=== PATIENT | male | born 1970 | race African-American/Black ===

== ENCOUNTER 2018-07-11 06:51 | Emergency (ER) | payer MEDICAID ==
--- NOTE | 2018-07-11 07:17 | EDM.PDOC ---
ED HPI GENERAL MEDICAL PROBLEM - General Chief Complaint: General Stated Complaint: HEMORRHOIDS Time Seen by Provider: 07/11/18 07:10 Source of Information: Reports: Patient History Limitations: Reports: No Limitations - History of Present Illness INITIAL COMMENTS - FREE TEXT/NARRATIVE: History of present illness: []Patient has had over a year of rectal bleeding with every bowel movement and states that his stool is brown and he has bright red streaks on the stool sometimes but mostly when he wipes. He does not have rectal pain he does complain of occasional lower abdominal pain at times, not related to bowel movements. 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 Also complains of right ear pain is chronic ear infections since childhood. He denies any fevers, chills, vomiting or diarrhea. Review of systems: As per history of present illness and below otherwise all systems reviewed and negative. Past medical history: As per history of present illness and as reviewed below otherwise noncontributory. Surgical history: As per history of present illness and as reviewed below otherwise noncontributory. Social history: No reported history of drug or alcohol abuse history: As per history of present illness and as reviewed below otherwise noncontributory. Physical exam: General: Well developed, well nourished in NAD HEENT: Atraumatic, normocephalic, pupils reactive, negative for conjunctival pallor or scleral icterus, mucous membranes moist, throat clear, neck supple, nontender, trachea midline. Right EAC with impacted cerumen, left EAC/TM normal. Right TM after foreign body removal was noted to be normal. EACs mildly erythematous without edema Lungs: Clear to auscultation, breath sounds equal bilaterally, chest nontender. Heart: S1S2, regular, negative for clicks, rubs, or JVD. Abdomen: NABS, Soft, nondistended, nontender no rebound or guarding and no palpable masses. Negative for masses or hepatosplenomegaly. Negative for costovertebral tenderness. Pelvis: Stable nontender. Genitourinary: Deferred. Rectal: Normal external anatomy, Normal sphincter tone, guaiac negative no palpable hernia Extremities: Atraumatic, negative for cords or calf pain. Neurovascular unremarkable. Neuro: Awake, alert, oriented. Cranial nerves II through XII unremarkable. Cerebellum unremarkable. Motor and sensory unremarkable throughout. Exam nonfocal. Skin:warm and dry Diagnostics: None Therapeutics: Right impacted cerumen irrigated, right EAC irrigated and as tip of a cotton tip that was embedded was removed. ED Course: Unremarkable Impression: Chronic rectal bleeding, removal foreign body right EAC Prescriptions: none Plan: Follow up general surgery Definitive disposition and diagnosis as appropriate pending reevaluation and review of above. Abdominal Pain Score (Numeric/FACES): 8 Right Ear Pain Score (Numeric/FACES): 10 - Related Data Allergies Allergy/AdvReac Type Severity Reaction Status Date / Time Sulfa (Sulfonamide Allergy Other Verified 07/11/18 07:30 Antibiotics) Home Meds: Home Meds . [No Known Home Meds] 07/11/18 [History] ED ROS GENERAL - Review of Systems Review Of Systems: ROS reveals no pertinent complaints other than HPI. ED EXAM, GENERAL - Physical Exam Exam: See Below (See history of present illness) Course - Vital Signs Last Recorded V/S: Last Vital Signs Temp 98.1 F 07/11/18 07:26 Pulse 95 07/11/18 07:26 Resp 18 07/11/18 07:26 BP 154/106 H 07/11/18 07:26 Pulse Ox 95 07/11/18 07:26 Departure - Departure Time of Disposition: 08:32 Disposition: Home, Self-Care 01 Condition: Good Clinical Impression: Rectal bleeding, H/O retained foreign body fully removed - Discharge Information *PRESCRIPTION DRUG MONITORING PROGRAM REVIEWED*: No *COPY OF PRESCRIPTION DRUG MONITORING REPORT IN PATIENT JACK: No Instructions: Rectal Bleeding, [id number] Referrals: PCP,None [Primary Care Provider] - Mic Santiago MD [Physician] - (call for next available apt.) Forms: ED Department Discharge Additional Instructions: The following information is given to patients seen in the emergency department who are being discharged to home. This information is to outline your options for follow-up care. We provide all patients seen in our emergency department with a follow-up referral. The need for follow-up, as well as the timing and circumstances, are variable depending upon the specifics of your emergency department visit. If you don't have a primary care physician on staff, we will provide you with a referral. We always advise you to contact your personal physician following an emergency department visit to inform them of the circumstance of the visit and for follow-up with them and/or the need for any referrals to a consulting specialist. The emergency department will also refer you to a specialist when appropriate. This referral assures that you have the opportunity for follow-up care with a specialist. All of these measure are taken in an effort to provide you with optimal care, which includes your follow-up. Under all circumstances we always encourage you to contact your private physician who remains a resource for coordinating your care. When calling for follow-up care, please make the office aware that this follow-up is from your recent emergency room visit. If for any reason you are refused follow-up, please contact the [facility] Emergency Department at and asked to speak to the emergency department charge nurse. Follow-up Gen. surgery call for next available appointment. [facility] Specialty Care - General Surgery Professional Building [address] [place] [address], [address] [place] [address]
== END 2018-07-11 08:45 | disposition home or self-care (01) ==
LOC: MW.ED 06:51
DX: T16.1XXA Foreign body in right ear, initial encounter (principal); H61.21 Impacted cerumen, right ear; K62.5 Hemorrhage of anus and rectum; Z88.2 Allergy status to sulfonamides
CPT/HCPCS: 69209; 99282